=== PATIENT | male | born 1990 | race Caucasian/White ===

== ENCOUNTER 2020-07-12 09:42 | Outpatient (REF) | payer OTHER, SELFPAY | END 2020-07-12 09:43 | disposition home or self-care (01) | LOC: HO.LAB 09:42 | PROVIDERS: Visit Provider Internal Medicine | DX: Z20.828 Contact with and (suspected) exposure to other viral communicable diseases (principal) | CPT/HCPCS: C9803; U0003 ==

== ENCOUNTER 2021-03-11 19:32 | Emergency (ER) | payer OTHER, SELFPAY ==
[2021-03-11 20:11] VITALS: BP 115/56; PULSE 83; RESP 818; TEMP 37.1; O2SAT 98; BMI 31.9
--- NOTE | 2021-03-11 21:03 | PC.NURSE ---
patient a&ox3, provider at bedside with US to look at upper back, vss, will continue to monitor.
[2021-03-11 21:04] VITALS: BP 119/65; PULSE 75; RESP 18; TEMP 36.8; O2SAT 98
--- NOTE | 2021-03-11 21:06 | ED.SKABFB ---
HPI - Skin/Abscess/Foreign Bdy General Chief complaint: Skin/Abscess/Foreign Body Stated complaint: cyst? Time Seen by Provider: 03/11/21 20:59 Source: patient Mode of arrival: ambulatory Limitations: no limitations History of Present Illness HPI narrative: Patient comes emergency room complaining of a growing abscess in his upper back. Patient states it has been ongoing for about a week. Patient denies fever chills, complaining of localized pain. Patient states a few days ago he noticed a bit of drainage but then the orifice closed Related Data Previous Rx's Medication Instructions Recorded cephalexin [Keflex] 750 mg PO BID #19 cap 03/11/21 doxycycline hyclate 100 mg PO DAILY #19 tab 03/11/21 ibuprofen 600 mg PO TID PRN #14 tab 03/11/21 tramadol 50 mg PO BID PRN #6 tab 03/11/21 Allergies Allergy/AdvReac Type Severity Reaction Status Date / Time No Known Allergies Allergy Verified 03/11/21 20:10 Review of Systems Review of Systems: Constitutional : No Weight loss, No Fever, No Chills, No Night Sweats, No Fatigue, No Malaise ENT/Mouth : No Hearing loss, No Ear Pain, No Nasal Congestion, No Sinus Pain, No Hoarseness, No sore throat, No Rhinorrhea, No Swallowing Difficulty Eyes: No Eye Pain, No Swelling, No Redness, No Foreign Body, No Discharge, No Vision Changes Cardiovascular : No Chest Pain, No SOB, No Dyspnea on Exertion, No Orthopnea, No Edema, No Palpitations Respiratory : No Cough, No Sputum, No Wheezing, No Smoke Exposure, No Dyspnea Gastrointestinal : No Nausea, No Vomiting, No Diarrhea, No Constipation, No abdominal Pain, No Hematochezia, No Melena Genitourinary : no irregular bleeding, No Dysuria, No Urinary Frequency, No Hematuria, No Urinary Incontinence, No Urgency, No Flank Pain, No Urinary Flow Changes, No Hesitancy Musculoskeletal : No joint pain, No Myalgias, No Joint Swelling Skin : abscess in upper back right side Neuro : No Weakness, No Numbness, No Paresthesias, No Loss of Consciousness, No Dizziness, No Headache Psych : No Anxiety/Panic, No Depression, No SI/HI/AH/VH, No Social Issues, Heme/Lymph: No Bruising, No Bleeding,No Lymphadenopathy Endocrine : No Polyuria, No Polydipsia, No Temperature Intolerance PMFSH Past Medical History Medical History Patient denies medical problems Social History Social History Alcohol intake: current Alcohol intake frequency: other Patient Tobacco Use Status: Current everyday Tobacco user Use of substances other than those prescribed or required for medical reasons: No Advance Directives: No Physical Exam Vital Signs: Vital Signs: Last Vital Signs Temp 98.2 F 03/11/21 21:04 Pulse 75 03/11/21 21:04 Resp 18 03/11/21 21:04 BP 119/65 03/11/21 21:04 Pulse Ox 98 03/11/21 21:04 Body Mass Index 31.9 Appearance: Alert. Oriented X3. No acute distress. Eyes: Pupils equal, round and reactive to light. ENT: Pharynx normal. Neck: Normal inspection. Neck supple. No lymph nodes noted. No crepitus CVS: Normal heart rate and rhythm. Pulses normal. Normal S1 and S2 Respiratory: No respiratory distress. Breath sounds normal. No Wheezing. No rales Abdomen: Soft and nontender. No rigidity. No distention. good BS x4 Skin: Skin warm and dry. upper back right side, 3 cm x 2 cm abscess, erythematous, warm to touch, painful Extremities: No lower extremity edema. No lower extremity edema. No Lacerations. No Rash Neuro: Oriented X 3. No motor deficit. No sensory deficit. Moving all extermities. No slurred speech. Course Course Course Narrative: patient tolerated well the I&D, patient will return to the emergency room or with his primary care physician in 36 hours for removal of the packing. Patient was given the 1st dose of antibiotic, doxycycline and Keflex in the emergency room. Procedures Abscess I/D Site: back Side (if applicable): right Local Anesthetic: lidocaine 1% Amount of anesthesia used (mL): 10 Technique: incised with blade Amount of fluid expressed (mL): 10 Sent for culture/gram staining?: No Irrigation: No Packing used?: iodoform Discharge Plan Discharge Clinical Impression: Abscess of skin or subcutaneous tissue Qualifiers: Site of cutaneous abscess: unspecified site Qualified Code(s): L02.91 - Cutaneous abscess, unspecified Patient Disposition: Home, Self-Care Instructions: Abscess (ED) Additional Instructions: the packing needs to be removed in 24-48 hours, It may be done at the emergency room or at your primary care physician's office. Please follow-up with your primary care physician tomorrow. If you have any worsening or new symptoms, please return to the emergency room or call 911 Prescriptions: New doxycycline hyclate 100 mg tablet 100 mg PO DAILY Qty: 19 RF: 0 cephalexin [Keflex] 750 mg capsule 750 mg PO BID Qty: 19 RF: 0 tramadol 50 mg tablet 50 mg PO BID PRN (Reason: pain) Qty: 6 RF: 0 ibuprofen 600 mg tablet 600 mg PO TID PRN (Reason: pain) Qty: 14 RF: 0
[2021-03-11] MEDS: Lidocaine HCl 2 % MPF 5 ML VIAL 10 ML INFILTRATI (21:25)
[2021-03-11] MEDS: oxyCODONE HCl Immed Release 5 MG TABLET PO (22:04)
[2021-03-11] MEDS: cephALEXin 500 MG CAPSULE PO (22:04)
--- NOTE | 2021-03-11 22:09 | PC.NURSE ---
pt medicated per order
== END 2021-03-11 22:20 | disposition home or self-care (01) ==
PROVIDERS: Emergency Provider Emergency Medicine
DX: L02.212 Cutaneous abscess of back [any part, except buttock and flank] (principal)
CPT/HCPCS: 10060; 99284

== ENCOUNTER 2021-03-13 13:48 | Emergency (ER) | payer OTHER, SELFPAY ==
[2021-03-13 14:19] VITALS: BP 139/73; PULSE 67; RESP 16; TEMP 36.7; O2SAT 98; BMI 28.8
--- NOTE | 2021-03-13 15:45 | ED.WOUNDLAC ---
HPI - Wound/Laceration General Chief Complaint: Wound/Laceration Stated Complaint: recheck Time Seen by Provider: 03/13/21 15:41 History of Present Illness HPI narrative: patient presents for packing removal after I&D 2 days ago, he says it is improved, no fever no worse pain and swelling Related Data Previous Rx's Medication Instructions Recorded cephalexin 750 mg capsule (Keflex) 750 mg PO BID #19 cap 03/11/21 doxycycline hyclate 100 mg tablet 100 mg PO DAILY #19 tab 03/11/21 ibuprofen 600 mg tablet 600 mg PO TID PRN #14 tab 03/11/21 tramadol 50 mg tablet 50 mg PO BID PRN #6 tab 03/11/21 Allergies Allergy/AdvReac Type Severity Reaction Status Date / Time No Known Allergies Allergy Verified 03/11/21 20:10 Review of Systems Review of Systems: No fever no chills no spreading redness no worse pain and swelling no numbness no weakness PMFSH Past Medical History Source: nursing notes reviewed Medical History Patient denies medical problems Social History Social History Alcohol intake: current Alcohol intake frequency: other Patient Tobacco Use Status: Current everyday Tobacco user Advance Directives: No Advance Directives Information Provided: Yes Physical Exam Vital Signs: Vital Signs: Last Vital Signs Temp 98.0 F 03/13/21 14:19 Pulse 67 03/13/21 14:19 Resp 16 03/13/21 14:19 BP 139/73 03/13/21 14:19 Pulse Ox 98 03/13/21 14:19 Body Mass Index 28.8 General appearance no acute distress Head is normocephalic atraumatic Neck is supple Respiratory no distress The back exam there is packing in place in the site of the I and D there is very minimal erythema there is some discharge there is no surrounding erythema no fluctuance Course Course Course Narrative: Patient to feels very improved after I&D with no sign of any worsening infection and improved condition has packing removed and is discharged Discharge Plan Discharge Clinical Impression: Abscess re-check Patient Disposition: Home, Self-Care Additional Instructions: packing was removed and wound looks very improved Finish all antibiotics, apply a warm cloth periodically to facilitate drainage Return any time for worse pain and swelling, fever, any worse condition or any concerns Prescriptions: No Action doxycycline hyclate 100 mg tablet 100 mg PO DAILY Qty: 19 RF: 0 cephalexin [Keflex] 750 mg capsule 750 mg PO BID Qty: 19 RF: 0 tramadol 50 mg tablet 50 mg PO BID PRN (Reason: pain) Qty: 6 RF: 0 ibuprofen 600 mg tablet 600 mg PO TID PRN (Reason: pain) Qty: 14 RF: 0 Interventions: ED Discharge Assessment Last Done: 03/13/21 16:01 Discharge Date/Time: 03/13/21 16:05
== END 2021-03-13 16:05 | disposition home or self-care (01) ==
PROVIDERS: Emergency Provider Emergency Medicine
DX: Z48.00 Encounter for change or removal of nonsurgical wound dressing (principal); L02.91 Cutaneous abscess, unspecified; Z98.890 Other specified postprocedural states
CPT/HCPCS: 99283

== ENCOUNTER 2021-07-14 16:55 | Outpatient (REF) | payer OTHER, SELFPAY ==
--- NOTE | ~2021-07-14 | XR_ITS ---
EXAMINATION: XR HAND, RIGHT CLINICAL INFORMATION: Injury of the wrist. COMPARISON: None TECHNIQUE: PA, lateral, and oblique views of the right hand. FINDINGS: The bones and soft tissues are normal. No fracture. Alignment is anatomic. Joint spaces are maintained. No erosions or soft tissue calcifications. XR/XR hand RT min 3V IMPRESSION: Normal right hand.
== END 2021-07-14 16:56 | disposition home or self-care (01) ==
LOC: HO.HMGCX 16:55
PROVIDERS: Visit Provider Physician Assistant Medical
DX: S69.91XA Unspecified injury of right wrist, hand and finger(s), initial encounter (principal); X58.XXXA Exposure to other specified factors, initial encounter; Y93.9 Activity, unspecified; Y92.9 Unspecified place or not applicable; Y99.9 Unspecified external cause status
CPT/HCPCS: 73130

== ENCOUNTER 2022-04-24 13:14 | Emergency (ER) | payer OTHER, SELFPAY ==
[2022-04-24 13:16] VITALS: BP 151/85; PULSE 60; RESP 18; TEMP 36.6; O2SAT 98; BMI 37.1
[2022-04-24] MEDS: Tetracaine HCl/PF 0.5% Oph Sol 4 ML DROPS 3 DROP EYE-BOTH (14:33)
[2022-04-24] MEDS: Fluorescein Sodium STRIP 1 STRIP EYE-BOTH ×2 (14:33)
--- NOTE | 2022-04-24 15:12 | ED.GENADULT ---
HPI - General Adult General Chief complaint: Eye Problems Stated complaint: fb in r eye at work Time Seen by Provider: 04/24/22 13:56 Source: patient Mode of arrival: ambulatory Limitations: no limitations History of Present Illness HPI narrative: 31-year-old male presents to ED for right eye irritation, redness, and clear discharge. Patient states symptoms started after coming from work. Patient is a housekeeper supervisor. Patient unaware of anything going into his eye but feels like something is there. Patient denies any blurry vision. Patient unknown last tetanus shot. Related Data Previous Rx's Medication Instructions Recorded cephalexin 750 mg capsule (Keflex) 750 mg PO BID #19 caps 03/11/21 doxycycline hyclate 100 mg tablet 100 mg PO DAILY #19 tabs 03/11/21 tramadol 50 mg tablet 50 mg PO BID PRN pain #6 tabs 03/11/21 naproxen 500 mg tablet (Naprosyn) 500 mg PO BID PRN pain #30 tabs 07/14/21 erythromycin 5 mg/gram (0.5 %) eye 0.5 inch ophthalmic (eye) QID 7 04/24/22 ointment days #3.5 grams naproxen 500 mg tablet 500 mg PO BID PRN pain 10 days #20 04/24/22 tabs Allergies Allergy/AdvReac Type Severity Reaction Status Date / Time No Known Allergies Allergy Verified 03/11/21 20:10 Review of Systems Review of Systems: Right eye discomfort Yes all other systems are reviewed and are negative FOR[facility]LY [facility], [facility] Past Medical History Medical History Patient denies medical problems Social History Social History Alcohol intake: current Alcohol intake frequency: other Patient Tobacco Use Status: Current everyday Tobacco user Advance Directives: No Advance Directives Information Provided: No Physical Exam ED Vital Signs: Vital Signs - 24 hr 04/24/22 13:16 Temperature 98 F Pulse Rate 60 Respiratory Rate 18 Blood Pressure 151/85 H Pulse Oximetry 98 Oxygen Delivery Method Room Air BMI result Body Mass Index 37.1 Const General: cooperative, healthy appearing, comfortable, no acute distress, well developed, alert, awake and Physically active Orientation/consciousness: oriented to time and patient oriented x3 HENMT Head: Yes normal to inspection, Yes No palpable skull fracture present, Yes normocephalic, Yes atraumatic and No abrasion Eyes Other: Left eye are normal. Both eyes visual acuity 20/25 General: appearance normal, both eyes and all related structures Eyes/upper lids images: 1. Positive for area of corneal abrasion with fluorescein. Negative for signs of globe rupture. 2. Conjunctiva scleral redness. Neck Neck: Yes normal visual inspection, Yes full ROM, Yes no lymphadenopathy, Yes no meningeal signs, Yes trachea midline, Yes supple, No anterior neck swelling and No tender Chest Chest palpation & inspection: normal inspection of the chest and normal palpation of entire chest wall Resp Effort & Inspection: normal respiratory effort and able to speak in complete sentences Auscultation: clear to auscultation bilaterally Cardio Jugular venous distension: no JVD Heart sounds: S1 normal heart sound present and S2 normal heart sound present GI Inspection: Yes normal to inspection and No abdominal wall ecchymosis Palpation (GI): Soft to palpation, not firm, nontender, no guarding and not rigid General: No CVA tenderness and Yes no CVA tenderness Back/Spine/Pelvis Back: no CVA tenderness, No CVA tenderness and No back tenderness Skin General skin exam: no rashes or lesions noted and elasticity normal Neuro General: oriented to time, patient oriented x3, gait normal, tone normal and no meningeal signs Cranial nerves: Yes CN's II-XII intact bilaterally Extrem General: Yes normal to inspection and Yes full ROM Psych Appearance: grossly normal, well kempt and not disheveled Course Course Course Narrative: Both eyes evaluated. Reevaluation(s) Reevaluation #1: Tetracaine and fluorescein dye placed in both eyes. Right eye positive for corneal abrasion versus foreign body. Cotton swab was used in an area of cornea was not removed. Possibly most likely corneal abrasion. Negative for resting. Tdap ordered. Discharged with azithromycin. Time: 15:18 Reevaluation #2: Patient did not want to wait for Tdap shot and states he is sure he is up-to-date with his tetanus with his primary care provider. Patient states he will call to confirm. Medical Decision Making MDM Narrative Medical decision making narrative: Corneal abrasion Discharge Plan Discharge Clinical Impression: Corneal abrasion Patient Disposition: Home, Self-Care Instructions: Corneal Abrasion (ED) Additional Instructions: Se le fredy? de [place] con shaheen?ento para los ojos. Por favor, smith un seguimiento con el m?dico de atenci?n primaria y el oftalm?logo. Regrese al servicio de urgencias por cambios en la visi?n, dolor en los ojos, secreci?n diya amarillenta, p?rdida de la visi?n, hinchaz?n de los ojos, dolor de susannah, mareos o cualquier otro s?ntoma preocupante. Prescriptions: New erythromycin 5 mg/gram (0.5 %) ointment 0.5 inch ophthalmic (eye) QID 7 Days Qty: 3.5 0RF Rx Instructions: right eye naproxen 500 mg tablet 500 mg PO BID PRN (Reason: pain) 10 Days Qty: 20 0RF No Action doxycycline hyclate 100 mg tablet 100 mg PO DAILY Qty: 19 0RF cephalexin [Keflex] 750 mg capsule 750 mg PO BID Qty: 19 0RF tramadol 50 mg tablet 50 mg PO BID PRN (Reason: pain) Qty: 6 0RF naproxen [Naprosyn] 500 mg tablet 500 mg PO BID PRN (Reason: pain) Qty: 30 0RF Referrals: Sean Kaufman [Physician] - (Right eye corneal abrasions) Stand Alone Forms: Work/School Release Discharge Date/Time: 04/24/22 15:56 Print Language: Amharic
== END 2022-04-24 15:56 | disposition home or self-care (01) ==
PROVIDERS: Emergency Provider Student in an Organized Health Care Education/Training Program; PCP Internal Medicine
DX: S05.01XA Injury of conjunctiva and corneal abrasion without foreign body, right eye, initial encounter (principal); X58.XXXA Exposure to other specified factors, initial encounter; Y93.9 Activity, unspecified; Y92.9 Unspecified place or not applicable; Y99.9 Unspecified external cause status; Z79.899 Other long term (current) drug therapy
CPT/HCPCS: 99283